=== PATIENT | male | born 1970 | race Two or more races ===

== ENCOUNTER 2017-10-25 17:33 | Emergency (ER) | payer SELFPAY ==
[2017-10-25] MEDS: ONDANSETRON PF 4 MG/2 ML VIAL. IV (18:40)
[2017-10-25] MEDS: IV NORMAL SALINE 500ML BAG 500 ML IV (18:40)
[2017-10-25] MEDS: fentaNYL PF VIAL 100 MCG/2 ML VIAL IV (18:41)
[2017-10-25] MEDS: TETANUS AND DIPHTHERIA TOX/PF 0.5 ML DISP.SYRIN. VAX IM (19:30)
== END 2017-10-25 19:58 | disposition home or self-care (01) ==
LOC: ER 17:33
DX: S51.832A Puncture wound without foreign body of left forearm, initial encounter (principal); E78.00 Pure hypercholesterolemia, unspecified; I10 Essential (primary) hypertension; W29.4XXA Contact with nail gun, initial encounter; Y93.89 Activity, other specified; Y92.89 Other specified places as the place of occurrence of the external cause; Y99.8 Other external cause status
CPT/HCPCS: 73090; 96365; 96375; 99284; J0690; J2405; J3010; J7040

== ENCOUNTER 2021-02-10 22:05 | Emergency (ER) | payer SELFPAY ==
[~2021-02-10] VITALS: Ht 167.6 cm; Wt 84.0 kg
[~2021-02-10 22:05] MED LIST: Aspirin PO; CEPH500C PO; FENO134C10 PO; Guaifenesin/Dextromethorphan PO; HYDR-3164 PO; OMEG1CAP6 PO
[2021-02-10 22:22] LABS: BASO % 0 % (0-3); EOS # 0.2 x10^3/uL (0.0-0.7); EOS % 2 % (0-3); HEMOGLOBIN 15.8 g/dL (13.0-17.5); LYMPH # 4.7 x10^3/uL (1.0-4.8); LYMPH % 44 % (24-48); MEAN CORPUSCULAR HEMOGLOBIN 30 pg (25-35); MEAN CORPUSCULAR HGB CONC 34 g/dL (31-37); MEAN CORPUSCULAR VOLUME 88 fL (79-100); MONO # 0.5 x10^3/uL (0.0-1.1); MONO % 5 % (0-9); NEUT # 5.2 x10^3/uL (1.8-7.7); NEUT % 49 % (31-73); PLATELET COUNT 266 x10^3/uL (140-400); RED BLOOD COUNT 5.21 x10^6/uL (4.30-5.70); RED CELL DISTRIBUTION WIDTH 14.1 % (11.5-14.5); WHITE BLOOD COUNT 10.7 x10^3/uL (4.0-11.0)
[2021-02-10 22:38] LABS: CALCIUM 7.8 mg/dL (8.5-10.1); CREATININE 1.1 mg/dL (0.7-1.3); GFR 70.9; POTASSIUM 3.7 mmol/L (3.5-5.1)
[2021-02-10 22:46] LABS: ALBUMIN 3.7 g/dL (3.4-5.0); ALBUMIN/GLOBULIN RATIO 1.2 (1.0-1.7); TOTAL BILIRUBIN 0.3 mg/dL (0.2-1.0); TOTAL PROTEIN 6.9 g/dL (6.4-8.2)
--- NOTE | 2021-02-10 22:50 | RAD ---
Exam: CT head and cervical spine without contrast INDICATION: Fall, neck and back pain TECHNIQUE: Sequential axial images through the head and cervical spine were obtained without the admi nistration of IV contrast. Exposure: One or more of the following in the visualized dose reduction techniques were utilized for this examination: 1. Automated exposure control 2. Adjustment of the MA and/or KV according to patient size 3. Use of iterative of reconstructive technique Comparisons: None FINDINGS: Head: No focal parenchymal lesion or hemorrhage is identified. There is no midline shift or sulcal effaceme nt. No acute vascular territory infarction is identified. Haddad-white distinction is preserved. The ventricular system is within normal limits without compression hydrocephalus. The basal cisterns are well maintained. The visualized portions of the paranasal sinuses and mastoid air cells are well-pneumatized. No acute fractures. Cervical spine: Straightening of cervical spine which may positional. Vertebral body heights are well-maintained. Fracture to the cervical spine is not identified. Mild spondylotic change in cervical spine with degenerative disease greatest at C4-C5 and C5-C6. Visualized paraspinal soft tissues are unremarkable. IMPRESSION: 1. No acute intracranial abnormality. 2. Negative CT C-spine for acute traumatic injury. Electronically signed by: Caleb Petersen MD (02/10/2021 10:47 PM) [facility]
--- NOTE | 2021-02-10 22:56 | RAD ---
Exam: CT of chest without contrast. CT thoracic spine INDICATION: Fall, neck and back pain TECHNIQUE: Sequential axial images through the chest obtained without IV contrast. Sagittal and coron al reformatted images were reconstructed from the axial data and reviewed. Cone-down reconstructed im ages of the thoracic spine were also reviewed Exposure: One or more of the following in the visualized dose reduction techniques were utilized for this examination: 1. Automated exposure control 2. Adjustment of the MA and/or KV according to patient size 3. Use of iterative of reconstructive technique Comparisons: None FINDINGS: Visualized portions of the thyroid are unremarkable. No enlarged mediastinal lymph nodes are identifi ed. Heart size is normal. No pericardial effusion. Thoracic aorta has a normal course and caliber. Pulmon finesse artery is not enlarged. Airways are patent. Mild bronchial wall thickening is noted. No consolidation or pneumothorax. No pleural effusion or thickening. Visualized upper abdomen is unremarkable. No suspicious osseous lesions or acute fractures. Thoracic spine: Vertebral body heights and alignment are well-maintained. Fracture to the thoracic spine is is not identified. Minimal degenerative disc changes in the mid and lower thoracic spine without significant neural fora abhijeet or spinal canal stenosis. IMPRESSION: 1. No acute traumatic injury identified at the chest. 2. Negative CT thoracic spine for acute traumatic injury. Electronically signed by: Caleb Petersen MD (02/10/2021 10:53 PM) [facility]
--- NOTE | 2021-02-10 23:07 | PHYS DOC ---
Past Medical History Past Medical History: No Pertinent History, High Cholesterol, Hypertension Past Surgical History: Appendectomy, Other Additional Past Surgical Histo: BACK, SHOULDER, AND COLON SX. Smoking Status: Current Every Day Smoker Alcohol Use: Heavy Drug Use: None General Adult EDM: Chief Complaint: MECHANICAL FALL HPI: HPI: Patient is a 50 year old male with past medical history hypertension hyperlipidemia and daily drinker presents for evaluation after a fall. Family found patient unconscious next to a tractor. Family states patient appears to have fallen from the tractor into a hole that he was digging. It is estimated that the patient may have fallen 5 to 6 feet. Family found patient on the ground. Patient was aroused and then brought to the emergency department by private vehicle. On exam patient is alert complaining of right-sided neck disc omfort. Patient appears to be intoxicated. He is moving all of his extremities. I see no open wounds or skin ecchymosis. Patient's C-spine T- spine no midline step-off or deformities. Review of Systems: Review of Systems: Review of systems: Constitutional symptoms- No fever, no chills. Eyes- No Discharge, No Visual Loss Respiratory symptoms- No shortness of breath, No wheezing, No Dyspnea on Exertion Cardiovascular Systems; No chest pain, No Palpitations, No syncope Gastrointestinal symptoms: NO abdominal pain, no nausea, no vomiting or diarrhea. Genitourinary symptoms: No dysuria. Musculoskeletal symptoms: Positive back pain No extremity pain. Positive neck pain NEUROLOGICAL Symptoms: Positive headache, no generalized weakness; No focal Weakness Skin: No rash. Heart Score: C/O Chest Pain: N/A Risk Factors: Risk Factors: DM, Current or recent (<one month) smoker, HTN, HLP, family hi story of CAD, obesity. Risk Scores: Score 0 - 3: 2.5% MACE over next 6 weeks - Discharge Home Score 4 - 6: 20.3% MACE over next 6 weeks - Admit for Clinical Observation Score 7 - 10: 72.7% MACE over next 6 weeks - Early Invasive Strategies Allergies: Allergies: Allergies Coded Allergies Type Severity Reaction Last Updated Verified No Known Drug Allergies 10/13/14 No Physical Exam: PE: General: alert, no acute distress. Skin: warm, dry and intact, no erythema, no rash. HENT: bilateral external ears normal, oropharynx moist, nose normal. Head:: Normocephalic, atraumatic. Neck: Trachea midline. Tenderness to palpation paraspinal cervical C4-C5 on the right no C-spine midline step-off or deformity Eyes: EOMI, Normal conjunctiva, No drainage CARDIOVASCULAR: Regular rate and rhythm RESPIRATORY: No respiratory distress Back: Full range of motion. MUSCULOSKELETAL: Full range of motion of bilateral upper and lower extremities. GASTROINTESTINAL: Abdomen soft without rebound or guarding. NEUROLOGICAL: Alert and noted to person, place and time. No neurological deficits observed Psychiatric: Cooperative. Normal judgment Current Patient Data: Labs: Laboratory Tests Test 02/10/21 22:10 White Blood Count 10.7 x10^3/uL (4.0-11.0) Red Blood Count 5.21 x10^6/uL (4.30-5.70) Hemoglobin 15.8 g/dL (13.0-17.5) Hematocrit 46.0 % (39.0-53.0) Mean Corpuscular Volume 88 fL (79-100) Mean Corpuscular Hemoglobin 30 pg (25-35) Mean Corpuscular Hemoglobin Concent 34 g/dL (31-37) Red Cell Distribution Width 14.1 % (11.5-14.5) Platelet Count 266 x10^3/uL (140-400) Neutrophils (%) (Auto) 49 % (31-73) Lymphocytes (%) (Auto) 44 % (24-48) Monocytes (%) (Auto) 5 % (0-9) Eosinophils (%) (Auto) 2 % (0-3) Basophils (%) (Auto) 0 % (0-3) Neutrophils # (Auto) 5.2 x10^3/uL (1.8-7.7) Lymphocytes # (Auto) 4.7 x10^3/uL (1.0-4.8) Monocytes # (Auto) 0.5 x10^3/uL (0.0-1.1) Eosinophils # (Auto) 0.2 x10^3/uL (0.0-0.7) Basophils # (Auto) 0.0 x10^3/uL (0.0-0.2) Sodium Level 142 mmol/L (136-145) Potassium Level 3.7 mmol/L (3.5-5.1) Chloride Level 106 mmol/L (98-107) Carbon Dioxide Level 26 mmol/L (21-32) Anion Gap 10 (6-14) Blood Urea Nitrogen 9 mg/dL (8-26) Creatinine 1.1 mg/dL (0.7-1.3) Estimated GFR (Cockcroft-Gault) 70.9 BUN/Creatinine Ratio 8 (6-20) Glucose Level 88 mg/dL (70-99) Calcium Level 7.8 mg/dL (8.5-10.1) L Total Bilirubin 0.3 mg/dL (0.2-1.0) Aspartate Amino Transferase (AST) 22 U/L (15-37) Alanine Aminotransferase (ALT) 40 U/L (16-63) Alkaline Phosphatase 95 U/L (46-116) Total Protein 6.9 g/dL (6.4-8.2) Albumin 3.7 g/dL (3.4-5.0) Albumin/Globulin Ratio 1.2 (1.0-1.7) Ethyl Alcohol Level 124 mg/dL (0-10) H Laboratory Tests 02/10/21 22:10 Laboratory Tests 02/10/21 22:10 Vital Signs: Vital Signs Date Time Temp Pulse Resp B/P (MAP) Pulse Ox O2 Delivery O2 Flow Rate FiO2 02/10/21 22:05 97.8 80 18 153/79 (103) 97 Room Air 97.8 EKG: EKG: [] Radiology/Procedures: Radiology/Procedures: [] Impression: Head: No focal parenchymal lesion or hemorrhage is identified. There is no midline shift or sulcal effacement. No acute vascular territory infarction is identified. Haddad-white distinction is preserved. The ventricular system is within normal limits without compression hydrocephalus. The basal cisterns are well maintained. The visualized portions of the paranasal sinuses and mastoid air cells are well- pneumatized. No acute fractures. Cervical spine: Straightening of cervical spine which may positional. Vertebral body heights are well-maintained. Fracture to the cervical spine is not identified. Mild spondylotic change in cervical spine with degenerative disease greatest at C4-C5 and C5-C6. Visualized paraspinal soft tissues are unremarkable. IMPRESSION: 1. No acute intracranial abnormality. 2. Negative CT C-spine for acute traumatic injury. Comparisons: None FINDINGS: Visualized portions of the thyroid are unremarkable. No enlarged mediastinal lymph nodes are identified. Heart size is normal. No pericardial effusion. Thoracic aorta has a normal course and caliber. Pulmonary artery is not enlarged. Airways are patent. Mild bronchial wall thickening is noted. No consolidation or pneumothorax. No pleural effusion or thickening. Visualized upper abdomen is unremarkable. No suspicious osseous lesions or acute fractures. Thoracic spine: Vertebral body heights and alignment are well-maintained. Fracture to the thoracic spine is is not identified. Minimal degenerative disc changes in the mid and lower thoracic spine without significant neural foraminal or spinal canal stenosis. IMPRESSION: 1. No acute traumatic injury identified at the chest. 2. Negative CT thoracic spine for acute traumatic injury. Course & Med Decision Making: Course & Med Decision Making Pertinent Labs and Imaging studies reviewed. (See chart for details) [] CT imaging without acute traumatic injury. Patient moves all extremities passively and actively. Patient without any neurological deficits. Patient discharged home advised to take Tylenol ibuprofen as needed for pain. Patient prescribed cyclobenzaprine. Lauraon Disclaimer: Noemi Disclaimer: This electronic medical record was generated, in whole or in part, using a voice recognition dictation system. Departure Departure Impression: Primary Impression: Fall Additional Impressions: Neck pain Head injury Intoxication Disposition: 01 HOME / SELF CARE / HOMELESS Condition: STABLE Referrals: NO PCP (PCP) Patient Instructions: Cervical Strain and Sprain with [facility], Fall Prevention and Home Safety, Head Injury, Adult Scripts Cyclobenzaprine Hcl (CYCLOBENZAPRINE HCL) 10 Mg Tablet 1 TAB PO QHS, #20 TAB Prov: SASKIA DRISCOLL DO 02/11/21 SASKIA DRISCOLL DO Feb 10, 2021 23:07
[2021-02-11] MEDS ORDERED: CYCL10TA2 PO (00:16)
[2021-02-11 00:20] VITALS: BP 111/67
[2021-02-11] MEDS ORDERED: IV NORMAL SALINE 1000ML BAG 1,000 ML IV ONE (00:30)
== END 2021-02-11 00:25 | disposition home or self-care (01) ==
LOC: ER 22:05
DX: S09.90XA Unspecified injury of head, initial encounter (principal); M54.2 Cervicalgia; R51.9 Headache, unspecified; F10.229 Alcohol dependence with intoxication, unspecified; Y90.1 Blood alcohol level of 20-39 mg/100 ml; I10 Essential (primary) hypertension; E78.00 Pure hypercholesterolemia, unspecified; F17.200 Nicotine dependence, unspecified, uncomplicated; W18.39XA Other fall on same level, initial encounter; Y93.89 Activity, other specified; Y92.89 Other specified places as the place of occurrence of the external cause; Y99.8 Other external cause status
CPT/HCPCS: 36415; 70450; 71250; 72125; 80053; 85025; 99285; G0480; J7030

== ENCOUNTER 2021-09-17 01:03 | Observation (INO) | payer SELFPAY ==
[~2021-09-17] VITALS: Ht 167.6 cm; Wt 77.7 kg
[~2021-09-17 01:03] MED LIST changes: +CYCL10TA19 PO
[2021-09-17] MEDS ORDERED: IV NORMAL SALINE 1000ML BAG 1,000 ML IV ONE (01:15)
--- NOTE | 2021-09-17 01:27 | PHYS DOC ---
Past Medical History Past Medical History: No Pertinent History, High Cholesterol, Hypertension Past Surgical History: Appendectomy, Other Additional Past Surgical Histo: BACK, SHOULDER, AND COLON SX. Smoking Status: Current Every Day Smoker Alcohol Use: Heavy Drug Use: None General Adult EDM: Chief Complaint: chest pain HPI: HPI: Patient is a 50 year old male who was brought here by EMS from home due to chest pain. Family said they went out to a bar, had a republican today, patient drank heavy amount of alcohol. On the way home patient started having chest pain, when they pulled into the his driveway patient passed out for a few minutes. Patient was acting confused. EMS were called, they gave him 1 dose of Narcan but did not produce any effect. His family stated that patient is a heavy smoker, heavy drinker, denies any history of diabetic. He has no history of high blood pressure but he does have a history of high cholesterol. Patient is not on any medication. Patient denies any history of coronary artery disease. No cough or fever, no abdominal pain. Through his daughter, patient said he is having left side chest pain that radiating to left shoulder and arm. Review of Systems: Review of Systems: Constitutional: Denies fever or chills. [] Eyes: Denies change in visual acuity. [] HENT: Denies nasal congestion or sore throat. [] Respiratory: Denies cough or shortness of breath. [] Cardiovascular: Positive for chest pain, no edema GI: Denies abdominal pain, nausea, vomiting, bloody stools or diarrhea. [] : Denies dysuria. [] Musculoskeletal: Denies back pain or joint pain. [] Integument: Denies rash. [] Neurologic: Denies headache, focal weakness or sensory changes. [] Endocrine: Denies polyuria or polydipsia. [] Lymphatic: Denies swollen glands. [] Psychiatric: Denies depression or anxiety. [] Heart Score: C/O Chest Pain: Yes HEART Score for Chest Pain: HEART Score for Chest Pain Response (Comments) Value History Moderately Suspicious 1 ECG Nonspecific Repolarizatio 1 Age >45 - < 65 1 Risk Factors 1 or 2 Risk Factors 1 Troponin < Normal Limit 0 Total 4 Risk Factors: Risk Factors: DM, Current or recent (<one month) smoker, HTN, HLP, family history of CAD, obesity. Risk Scores: Score 0 - 3: 2.5% MACE over next 6 weeks - Discharge Home Score 4 - 6: 20.3% MACE over next 6 weeks - Admit for Clinical Observation Score 7 - 10: 72.7% MACE over next 6 weeks - Early Invasive Strategies Current Medications: Current Medications Medications (Trade) Dose Ordered Sig/Kareem Start Time Stop Time Status Last Admin Dose Admin Sodium Chloride 1,000 ml @ 1,000 mls/hr 1X ONCE 09/17/21 01:15 09/17/21 02:14 Allergies: Allergies: Allergies Coded Allergies Type Severity Reaction Last Updated Verified No Known Drug Allergies 10/13/14 No Physical Exam: PE: Constitutional: Well developed, well nourished, no acute distress, non-toxic appearance. [] HENT: Normocephalic, atraumatic, bilateral external ears normal, oropharynx moist, no oral exudates, nose normal. [] Eyes: PERRLA, EOMI, conjunctiva normal, no discharge. [] Neck: Normal range of motion, no tenderness, supple, no stridor. [] Cardiovascular:Heart rate regular rhythm, no murmur [] Lungs & Thorax: Bilateral breath sounds clear to auscultation [] Abdomen: Bowel sounds normal, soft, no tenderness, no masses, no pulsatile masses. [] Skin: Warm, dry, no erythema, no rash. [] Back: No tenderness, no CVA tenderness. [] Extremities: No tenderness, no cyanosis, no clubbing, ROM intact, no edema. [] Neurologic: Alert and oriented X 3, normal motor function, normal sensory function, no focal deficits noted. [] Psychologic: Affect normal, judgement normal, mood normal. [] Current Patient Data: Labs: Laboratory Tests Test 09/17/21 01:20 09/17/21 01:53 White Blood Count 17.9 x10^3/uL Red Blood Count 4.94 x10^6/uL Hemoglobin 14.7 g/dL Hematocrit 43.2 % Mean Corpuscular Volume 87 fL Mean Corpuscular Hemoglobin 30 pg Mean Corpuscular Hemoglobin Concent 34 g/dL Red Cell Distribution Width 13.9 % Platelet Count 241 x10^3/uL Neutrophils (%) (Auto) 71 % Lymphocytes (%) (Auto) 24 % Monocytes (%) (Auto) 5 % Eosinophils (%) (Auto) 1 % Basophils (%) (Auto) 1 % Neutrophils # (Auto) 12.6 x10^3/uL Lymphocytes # (Auto) 4.2 x10^3/uL Monocytes # (Auto) 0.8 x10^3/uL Eosinophils # (Auto) 0.2 x10^3/uL Basophils # (Auto) 0.1 x10^3/uL Sodium Level 140 mmol/L Potassium Level 3.7 mmol/L Chloride Level 103 mmol/L Carbon Dioxide Level 21 mmol/L Anion Gap 16 Blood Urea Nitrogen 20 mg/dL Creatinine 1.3 mg/dL Estimated GFR (Cockcroft-Gault) 58.4 BUN/Creatinine Ratio 15 Glucose Level 113 mg/dL Calcium Level 8.1 mg/dL Magnesium Level 2.3 mg/dL Total Bilirubin 0.2 mg/dL Aspartate Amino Transf (AST/SGOT) 27 U/L Alanine Aminotransferase (ALT/SGPT) 45 U/L Alkaline Phosphatase 92 U/L Troponin I High Sensitivity 6 ng/L [id number] Natriuretic Peptide 10 pg/mL Total Protein 6.9 g/dL Albumin 3.7 g/dL Albumin/Globulin Ratio 1.2 Lipase 68 U/L Ethyl Alcohol Level 222 mg/dL Urine Collection Type Unknown Urine Color (Auto) Colorless Urine Turbidity Clear Urine pH (Auto) 5.5 Urine Specific [place] 1.010 Urine Protein (Auto) Negative mg/dL Urine Glucose (Auto)(UA) Negative mg/dL Urine Ketones (Auto) Negative mg/dL Urine Blood (Auto) Negative Urine Nitrite (Auto) Negative Urine Bilirubin (Auto) Negative Urine Urobilinogen (Auto) Normal mg/dL Urine Leukocyte Esterase (Auto) Negative Urine RBC 0 /HPF Urine WBC Occ /HPF Urine Squamous Epithelial Cells Occ /LPF Urine Bacteria 0 /HPF Urine Opiates Screen Neg Urine Methadone Screen Neg Urine Barbiturates Neg Urine Phencyclidine Screen Neg Urine Amphetamine/Methamphetamine Neg Urine Benzodiazepines Screen Neg Urine Cocaine Screen Neg Urine Cannabinoids Screen Neg Urine Ethyl Alcohol Pos Current Medications Medications (Trade) Dose Ordered Sig/Kareem Route PRN Reason Start Time Stop Time Status Last Admin Dose Admin Sodium Chloride 1,000 ml @ 1,000 mls/hr 1X ONCE IV 09/17/21 01:15 09/17/21 02:14 DC 09/17/21 01:31 Iohexol (Omnipaque 350 Mg/ml) 80 ml 1X ONCE IV 09/17/21 03:00 09/17/21 03:01 DC Info (CONTRAST GIVEN -- Rx MONITORING) 1 each PRN DAILY PRN MC SEE COMMENTS 09/17/21 03:00 09/19/21 02:59 EKG: EKG: EKG was done at 202, heart rate of 77 bpm, sinus rhythm, no ST segment elevation. Radiology/Procedures: Radiology/Procedures: [][facility] [address] [place] [address] IMAGING REPORT Signed PATIENT: MELONIE MARRERO ACCOUNT: [id number] : 1970 LOCATION: ER AGE: 50 SEX: M EXAM STATUS: REG ER ORD. PHYSICIAN: AV FARIAS DO REASON: chest pain, passing out, soa;OMNI 350,80ML PROCEDURE: CT ANGIO CHEST ABD PELVIS INDICATION: Reason: chest pain, passing out, soa;OMNI 350,80ML / Spl. Instructions: / History: COMPARISON: CT chest from February 10, 2021. TECHNIQUE: Axial CT images were obtained through the chest abdomen and pelvis with intravenous contrast. Three-dimensional images processed per angiogram protocol One or more of the following individualized dose reduction techniques were u tilized for this examination: 1. Automated exposure control; 2. Adjustment of the mA and/or kV according to patient size; 3. Use of iterative reconstruction technique. FINDINGS: Dependent airspace opacities bilaterally. There is an additional subtle groundglass opacities bilaterally. No evidence of pneumothorax. Enlarged lymph nodes within the mediastinum and hilum. For example right hilar lymph node measuring up to 21 mm short axis. The pulmonary arteries are not evaluated secondary to minimal contrast within. The ascending thoracic aorta is partially obscured by motion. No aneurysm or dissection flap in the visualized portion of thoracic aorta. Vascular: No abdominal aortic aneurysm. Hepatobiliary: Liver is low density. Nonspecific but can be seen with fatty infiltration. Pancreas: No peripancreatic edema. Spleen: Heterogenous enhancement limits evaluation. Renal/Bladder: Low-density lesion in the right kidney measuring up to about 16 mm. Incompletely evaluated but most commonly from renal cyst. Urinary bladder is well-distended. Gastrointestinal: No dilated loops of bowel to suggest obstruction. Degenerative changes throughout the spine with disc protrusions and osteophyte formation as well as facet hypertrophy. IMPRESSION: * No aortic aneurysm or dissection is seen. * Mild groundglass opacities in the lungs. Could be from hypoventilatory changes or small airway inflammation from pneumonitis. * Lymphadenopathy within the mediastinum and hilum which could be reactive or neoplastic and follow-up could be obtained in a few months to ensure no growth. * Distended urinary bladder. Electronically signed by: Britany Guerrero MD (09/17/2021 4:41 AM) [id number] DICTATED and SIGNED BY: BRITANY GUERRERO MD DATE: 09/17/21 [id number] [facility] [address] [place] [address] IMAGING REPORT Signed PATIENT: MELONIE MARRERO ACCOUNT: [id number] : 1970 LOCATION: ER AGE: 50 SEX: M EXAM STATUS: REG ER ORD. PHYSICIAN: AV FARIAS DO REASON: syncope PROCEDURE: CT HEAD WO CONTRAST INDICATION: Reason: syncope / Spl. Instructions: / History: COMPARISON: February 10, 2021 TECHNIQUE: Axial CT images obtained through the head without intravenous contrast. One or more of the following individualized dose reduction techniques were utilized for this examination: 1. Automated exposure control; 2. Adjustment of the mA and/or kV according to patient size; 3. Use of iterative reconstruction technique. FINDINGS: No intracranial hemorrhage. No significant midline shift. Ventricles and sulci are globally prominent. Scattered foci of low attenuation within the white matter. Prominence of cisterna magna. Calcification left cerebral hemisphere again seen. IMPRESSION: * No acute intracranial hemorrhage. * Scattered regions of low attenuation within the white matter. Non-specific in nature but a common finding and frequently secondary to small vessel ischemic disease. Electronically signed by: Britany Guerrero MD (09/17/2021 4:05 AM) [id number] DICTATED and SIGNED BY: BRITANY GUERRERO MD DATE: 09/17/21 0406 Course & Med Decision Making: Course & Med Decision Making Pertinent Labs and Imaging studies reviewed. (See chart for details) Patient is a 50-year-old male who was brought here by EMS from home due to chest pain and syncopal episode. Patient had an episode where he passed out, acting like he was having an absence seizure, then did not remember. Patient complained of substernal chest pain that radiated to left shoulder and arm. Cardiac enzyme and EKG did not show any acute problem. Patient will be i ntoxicated. CT scan of the head, chest abdomen pelvis did not show any dissection or PE. Patient will be admitted for observation Dragon Disclaimer: Dragon Disclaimer: This electronic medical record was generated, in whole or in part, using a voice recognition dictation system. Departure Departure Impression: Primary Impression: Chest pain Additional Impressions: Syncope Alcohol intoxication Disposition: ADMITTED INPATIENT Admitting Physician: TALYA (Dr. Fraser) Condition: STABLE Referrals: NO PCP (PCP) AV FARIAS DO September 17, 2021 01:27
[2021-09-17 01:30] LABS: BASO # 0.1 x10^3/uL (0.0-0.2); BASO % 1 % (0-3); EOS # 0.2 x10^3/uL (0.0-0.7); EOS % 1 % (0-3); HEMATOCRIT 43.2 % (39.0-53.0); HEMOGLOBIN 14.7 g/dL (13.0-17.5); LYMPH # 4.2 x10^3/uL (1.0-4.8); LYMPH % 24 % (24-48); MEAN CORPUSCULAR HEMOGLOBIN 30 pg (25-35); MEAN CORPUSCULAR HGB CONC 34 g/dL (31-37); MEAN CORPUSCULAR VOLUME 87 fL (79-100); MONO # 0.8 x10^3/uL (0.0-1.1); MONO % 5 % (0-9); NEUT # 12.6 x10^3/uL (1.8-7.7); NEUT % 71 % (31-73); PLATELET COUNT 241 x10^3/uL (140-400); RED BLOOD COUNT 4.94 x10^6/uL (4.30-5.70); RED CELL DISTRIBUTION WIDTH 13.9 % (11.5-14.5); WHITE BLOOD COUNT 17.9 x10^3/uL (4.0-11.0)
[2021-09-17 02:00] LABS: CALCIUM 8.1 mg/dL (8.5-10.1); CREATININE 1.3 mg/dL (0.7-1.3); GFR 58.4; POTASSIUM 3.7 mmol/L (3.5-5.1)
[2021-09-17 02:08] LABS: BARBITURATES NEG (NEG); BENZODIAZEPINES NEG (NEG); CANNABINOIDS NEG (NEG); COCAINE NEG (NEG); METHADONE NEG (NEG); OPIATES NEG (NEG); PHENCYCLIDINE NEG (NEG)
[2021-09-17 02:09] LABS: ALBUMIN 3.7 g/dL (3.4-5.0); ALBUMIN/GLOBULIN RATIO 1.2 (1.0-1.7); MAGNESIUM 2.3 mg/dL (1.8-2.4); TOTAL BILIRUBIN 0.2 mg/dL (0.2-1.0); TOTAL PROTEIN 6.9 g/dL (6.4-8.2)
[2021-09-17 02:11] LABS: AMPHETAMINE/METHAMPHETAMINE NEG (NEG)
[2021-09-17 02:15] LABS: BACTERIA,URINE 0 /HPF (0-FEW); RBC,URINE 0 /HPF (0-2); WBC,URINE OCC /HPF (0-4)
[2021-09-17] MEDS ORDERED: CONTRAST GIVEN. MC PRN (03:00)
[2021-09-17] MEDS ORDERED: IOHEXOL 350 MG/ML 100 ML VIAL. IV ONE (03:00)
--- NOTE | 2021-09-17 04:07 | RAD ---
INDICATION: Reason: syncope / Spl. Instructions: / History: COMPARISON: February 10, 2021 TECHNIQUE: Axial CT images obtained through the head without intravenous contrast. One or more of the following individualized dose reduction techniques were utilized for this examinat ion: 1. Automated exposure control; 2. Adjustment of the mA and/or kV according to patient size; 3 . Use of iterative reconstruction technique. FINDINGS: No intracranial hemorrhage. No significant midline shift. Ventricles and sulci are globally prominent. Scattered foci of low attenuation within the white matter. Prominence of cisterna magna. Calcification left cerebral hemisphere again seen. IMPRESSION: * No acute intracranial hemorrhage. * Scattered regions of low attenuation within the white matter. Non-specific in nature but a common finding and frequently secondary to small vessel ischemic disease. Electronically signed by: Gera Marie MD (09/17/2021 4:05 AM) [id number]
--- NOTE | 2021-09-17 04:43 | RAD ---
INDICATION: Reason: chest pain, passing out, soa;OMNI 350,80ML / Spl. Instructions: / History: COMPARISON: CT chest from February 10, 2021. TECHNIQUE: Axial CT images were obtained through the chest abdomen and pelvis with intravenous contrast. Three-d imensional images processed per angiogram protocol One or more of the following individualized dose reduction techniques were utilized for this examinat ion: 1. Automated exposure control; 2. Adjustment of the mA and/or kV according to patient size; 3 . Use of iterative reconstruction technique. FINDINGS: Dependent airspace opacities bilaterally. There is an additional subtle groundglass opacities bilaterally. No evidence of pneumothorax. Enlarged lymph nodes within the mediastinum and hilum. For example right hilar lymph node measuring u p to 21 mm short axis. The pulmonary arteries are not evaluated secondary to minimal contrast within. The ascending thoracic aorta is partially obscured by motion. No aneurysm or dissection flap in the v isualized portion of thoracic aorta. Vascular: No abdominal aortic aneurysm. Hepatobiliary: Liver is low density. Nonspecific but can be seen with fatty infiltration. Pancreas: No peripancreatic edema. Spleen: Heterogenous enhancement limits evaluation. Renal/Bladder: Low-density lesion in the right kidney measuring up to about 16 mm. Incompletely evalu ated but most commonly from renal cyst. Urinary bladder is well-distended. Gastrointestinal: No dilated loops of bowel to suggest obstruction. Degenerative changes throughout the spine with disc protrusions and osteophyte formation as well as f acet hypertrophy. IMPRESSION: * No aortic aneurysm or dissection is seen. * Mild groundglass opacities in the lungs. Could be from hypoventilatory changes or small airway inf lammation from pneumonitis. * Lymphadenopathy within the mediastinum and hilum which could be reactive or neoplastic and follow- up could be obtained in a few months to ensure no growth. * Distended urinary bladder. Electronically signed by: Gera Marie MD (09/17/2021 4:41 AM) [id number]
[2021-09-17] MEDS ORDERED: ONDANSETRON PF 4 MG/2 ML VIAL. IVP PRN (05:30)
[2021-09-17] MEDS: IV NORMAL SALINE 1000ML BAG 1,000 ML IV SCH ×2 (05:39→05:41)
--- NOTE | 2021-09-17 06:03 | RAD ---
INDICATION: Reason: chest pain / Spl. Instructions: / History: COMPARISON: April 12, 2021 FINDINGS: Frontal view of chest obtained. Mild groundglass opacities bilaterally. Hypoexpanded exam. Cardiac silhouette unremarkable IMPRESSION: * Mild groundglass opacities within the lungs. Could be from hypoventilatory changes or small airway inflammation. Electronically signed by: Gera Marie MD (09/17/2021 6:01 AM) [id number]
[2021-09-17 06:15] VITALS: BP 125/66
[2021-09-17 07:00] VITALS: BP 109/64
--- NOTE | 2021-09-17 08:08 | PDOC1 ---
History and Physical Date of Admission Date of Admission DATE: 09/17/21 TIME: 08:07 Identification/Chief Complaint Chief Complaint Syncope Source Source: Caregiver, Chart review, Patient History of Present Illness History of Present Illness Mr Marrero is a 50 year old luxem[place]ish speaking only male who was brought here by EMS from home due to chest pain. Family said they went out to a bar, had a republican today, patient drank heavy amount of alcohol. On the way home patient started having chest pain, when they pulled into the his driveway patient passed out for a few minutes. Patient was acting confused. EMS were called, they gave him 1 dose of Narcan but did not produce any effect. His family stated that patient is a heavy smoker, heavy drinker, denies any history of diabetic. He has no history of high blood pressure but he does have a history of high cholesterol. Patient is not on any medication. Patient denies any history of coronary artery disease. No cough or fever, no abdominal pain. Through his daughter, patient said he is having left side chest pain that radiating to left shoulder and arm. Labs with WBC 17.9, Hb 14.7, platelets 241, NA 140, K3.7, BUN 20, CR 1.3, glucose 113, calcium 8.1, magnesium 2.3 bilirubin 0.2, AST 27, ALT 45, alkaline phosphatase 92, albumin 3.7, lipase 68, NT proBNP 10, high-sensitivity troponin 6 repeat is 4, urine drug screen positive for ethanol and ethanol level at 0120 on 09/17/21 was 222 mg/dL, urinalysis bland CT chest abdomen pelvis with large glass opacities liver abnormalities no pulmonary infarcts distended bladder. EKG was done at 202, heart rate of 77 bpm, sinus rhythm, no ST segment elevation. Past Medical History Cardiovascular: HTN, Hyperlipidemia Pulmonary: No pertinent hx CENTRAL NERVOUS SYSTEM: Other GI: No pertinent hx Heme/Onc: No pertinent hx Hepatobiliary: No pertinent hx Psych: Depression Musculoskeletal: Osteoarthritis Rheumatologic: No pertinent hx Infectious disease: No pertinent hx Renal/: No pertinent hx Endocrine: No pertinent hx Past Surgical History Past Surgical History: Appendectomy, Other Family History Family History: Coronary Artery Disease Social History Smoke: 1 pack per day ALCOHOL: occassional Drugs: None Current Problem List Problem List Problems Medical Problems: (1) Chest pain Status: Acute Current Medications Current Medications Current Medications Sodium Chloride 1,000 ml @ 1,000 mls/hr 1X ONCE IV Last administered on 09/17/21at 01:31; Start 09/17/21 at 01:15; Stop 09/17/21 at 02:14; Status DC Iohexol (Omnipaque 350 Mg/ml) 80 ml 1X ONCE IV ; Start 09/17/21 at 03:00; Stop 09/17/21 at 03:01; Status DC Info (CONTRAST GIVEN -- Rx MONITORING) 1 each PRN DAILY PRN MC SEE COMMENTS; Start 09/17/21 at 03:00; Stop 09/19/21 at 02:59 Ondansetron HCl (Zofran) 4 mg PRN Q8HRS PRN IVP NAUSEA/VOMITING; Start 09/17/21 at 05:30; Stop 09/18/21 at 05:29 Sodium Chloride 1,000 ml @ 100 mls/hr Q10H IV Last administered on 09/17/21at 05:41; Start 09/17/21 at 05:30; Stop 09/18/21 at 05:29 Active Scripts Active Cyclobenzaprine Hcl 10 Mg Tablet 1 Tab PO QHS [place] 5-325 Tablet (Acetaminophen/Hydrocodone Bitart) 1 Each Tablet 1 Tab PO PRN Q6HRS PRN Keflex (Cephalexin) 500 Mg Capsule 1 Cap PO TID Fish Oil 1,000 Mg Capsule ([place]-3 Fatty Acids/Fish Oil) 1,000 Mg Capsule 2,000 Mg PO BID [Guaifenesin/Dextromethorphan] 10 ML Syrup 10 Ml PO PRN Q6HRS PRN Lofibra (Fenofibrate,Micronized) 134 Mg Capsule 134 Mg PO DAILY [Aspirin] 81 MG Tablet.dr 81 Mg PO DAILYWBKFT Allergies Allergies: Coded Allergies: No Known Drug Allergies (Unverified , 10/13/14) ROS General: YES: Fatigue, Malaise; No: Chills, Night Sweats, Appetite, Other PSYCHOLOGICAL ROS: YES: Anxiety; No: Behavioral Disorder, Concentration difficultie, Decreased libido, Depression, Disorientation, Hallucinations, Hostility, Irritablity, Memory diffi culties, Mood Swings, Obsessive thoughts, Physical abuse, Sexual abuse, Sleep disturbances, Suicidal ideation, Other Eyes: No Blurry vision, No Decreased vision, No Double vision, No Dry eyes, No Excessive tearing, No Eye Pain, No Itchy Eyes, No Loss of vision, No Photophobia, No Scotomata, No Uses contacts, No Uses glasses, No Other HEENT: YES: Heacaches; No: Visual Changes, Hearing change, Nasal congestion, Nasal discharge, Oral lesions, Sinus pain, Sore Throat, Epistaxis, Sneezing, Snoring, Tinnitus, Vertigo, Vocal changes, Other ALLERGY AND IMMUNOLOGY: No: Hives, Insect Bite Sensitivity, Itchy/Watery Eyes, Nasal Congestion, Post Nasal Drip, Seasonal Allergies, Other Hematological and Lymphatic: No: Bleeding Problems, Blood Clots, Blood Transfusions, Brusing, Night Sweats, Pallor, Swollen Lymph Nodes, Other ENDOCRINE: No: Breast Changes, Galactorrhea, Hair Pattern Changes, Hot Flashes, Malaise/lethargy, Mood Swings, Palpitations, Polydipsia/polyuria, Skin Changes, Temperature Intolerance, Unexpected Weight Changes, Other Breast: No New/Changing Breast Lumps, No Nipple changes, No Nipple discharge, No Other Respiratory: No: Cough, Hemoptysis, Orthopnea, Pleuritic Pain, Shortness of breath, SOB with excertion, Sputum Changes, Stridor, Tachypnea, Wheezing, Other Cardiovascular: yes Chest Pain; No Palpitations, No Orthopnea, No Paroxysmal Noc. Dyspnea, No Edema, No Lt Headedness, No Other Gastrointestinal: Yes Nausea; No Vomiting, No Abdominal Pain, No Diarrhea, No Constipation, No Melena, No Hematochezia, No Other Genitourinary: No Dysuria, No Frequency, No Incontinence, No Hematuria, No Retention, No Discharge, No Urgency, No Pain, No Flank Pain, No Other, No , No , No , No , No , No , No Musculoskeletal: No Gait Disturbance, No Joint Pain, No Joint Stiffness, No Joint Swelling, No Muscle Pain, No Muscular Weakness, No Pain In:, No Swelling In:, No Other Neurological: No Behavorial Changes, No Bowel/Bladder ControlChng, No Confusion, No Dizziness, No Gait Disturbance, No Headaches, No Impaired Coord/balance, No Memory Loss, No Numbness/Tingling, No Seizures, No Speech Problems, No Tremors, No Visual Changes, No Weakness, No Other Skin: No Dry Skin, No Eczema, No Hair Changes, No Lumps, No Mole Changes, No Mottling, No Nail Changes, No Pruritus, No Rash, No Skin Lesion Changes, No Other, No Acne Physical Exam General: Alert, Cooperative, No acute distress HEENT: Atraumatic, PERRLA, EOMI, Mucous membr. moist/pink Lungs: Clear to auscultation, Normal air movement Heart: S1S2, RRR, no thrills, no rubs, no gallops, no murmurs Abdomen: Normal bowel sounds, Soft, No tenderness, No hepatosplenomegaly, No masses Rectal Exam: not examined Extremities: No clubbing, No cyanosis, No edema, Normal pulses, No tenderness/swelling Skin: No rashes, No breakdown, No significant lesion Neuro: Normal gait, Normal speech, Strength at 5/5 X4 ext, Normal tone, Sensation intact, Cranial nerves 3-12 NL, Reflexes 2+ Psych/Mental Status: Mental status NL, Mood NL Vitals Vitals Vital Signs Date Time Temp Pulse Resp B/P (MAP) Pulse Ox O2 Delivery O2 Flow Rate FiO2 09/17/21 06:15 98.4 82 20 125/66 (85) 95 Room Air 98.4 Labs Labs Laboratory Tests Test 09/17/21 01:20 09/17/21 01:53 09/17/21 04:50 White Blood Count 17.9 x10^3/uL (4.0-11.0) Red Blood Count 4.94 x10^6/uL (4.30-5.70) Hemoglobin 14.7 g/dL (13.0-17.5) Hematocrit 43.2 % (39.0-53.0) Mean Corpuscular Volume 87 fL (79-100) Mean Corpuscular Hemoglobin 30 pg (25-35) Mean Corpuscular Hemoglobin Concent 34 g/dL (31-37) Red Cell Distribution Width 13.9 % (11.5-14.5) Platelet Count 241 x10^3/uL (140-400) Neutrophils (%) (Auto) 71 % (31-73) Lymphocytes (%) (Auto) 24 % (24-48) Monocytes (%) (Auto) 5 % (0-9) Eosinophils (%) (Auto) 1 % (0-3) Basophils (%) (Auto) 1 % (0-3) Neutrophils # (Auto) 12.6 x10^3/uL (1.8-7.7) Lymphocytes # (Auto) 4.2 x10^3/uL (1.0-4.8) Monocytes # (Auto) 0.8 x10^3/uL (0.0-1.1) Eosinophils # (Auto) 0.2 x10^3/uL (0.0-0.7) Basophils # (Auto) 0.1 x10^3/uL (0.0-0.2) Sodium Level 140 mmol/L (136-145) Potassium Level 3.7 mmol/L (3.5-5.1) Chloride Level 103 mmol/L (98-107) Carbon Dioxide Level 21 mmol/L (21-32) Anion Gap 16 (6-14) Blood Urea Nitrogen 20 mg/dL (8-26) Creatinine 1.3 mg/dL (0.7-1.3) Estimated GFR (Cockcroft-Gault) 58.4 BUN/Creatinine Ratio 15 (6-20) Glucose Level 113 mg/dL (70-99) Calcium Level 8.1 mg/dL (8.5-10.1) Magnesium Level 2.3 mg/dL (1.8-2.4) Total Bilirubin 0.2 mg/dL (0.2-1.0) Aspartate Amino Transf (AST/SGOT) 27 U/L (15-37) Alanine Aminotransferase (ALT/SGPT) 45 U/L (16-63) Alkaline Phosphatase 92 U/L (46-116) Troponin I High Sensitivity 6 ng/L (4-75) 4 ng/L (4-75) WN-Eir-A-Type Natriuretic Peptide 10 pg/mL (0-124) Total Protein 6.9 g/dL (6.4-8.2) Albumin 3.7 g/dL (3.4-5.0) Albumin/Globulin Ratio 1.2 (1.0-1.7) Lipase 68 U/L (73-393) Ethyl Alcohol Level 222 mg/dL (0-10) Urine Collection Type Unknown Urine Color (Auto) Colorless Urine Turbidity Clear Urine pH (Auto) 5.5 (<5.0-8.0) Urine Specific [place] 1.010 (1.000-1.030) Urine Protein (Auto) Negative mg/dL (Negative) Urine Glucose (Auto)(UA) Negative mg/dL (Negative) Urine Ketones (Auto) Negative mg/dL (Negative) Urine Blood (Auto) Negative (Negative) Urine Nitrite (Auto) Negative (Negative) Urine Bilirubin (Auto) Negative (Negative) Urine Urobilinogen (Auto) Normal mg/dL (Normal) Urine Leukocyte Esterase (Auto) Negative (Negative) Urine RBC 0 /HPF (0-2) Urine WBC Occ /HPF (0-4) Urine Squamous Epithelial Cells Occ /LPF Urine Bacteria 0 /HPF (0-FEW) Urine Opiates Screen Neg (NEG) Urine Methadone Screen Neg (NEG) Urine Barbiturates Neg (NEG) Urine Phencyclidine Screen Neg (NEG) Urine Amphetamine/Methamphetamine Neg (NEG) Urine Benzodiazepines Screen Neg (NEG) Urine Cocaine Screen Neg (NEG) Urine Cannabinoids Screen Neg (NEG) Urine Ethyl Alcohol Pos (NEG) Laboratory Tests Test 09/17/21 01:20 09/17/21 01:53 09/17/21 04:50 White Blood Count 17.9 x10^3/uL (4.0-11.0) Red Blood Count 4.94 x10^6/uL (4.30-5.70) Hemoglobin 14.7 g/dL (13.0-17.5) Hematocrit 43.2 % (39.0-53.0) Mean Corpuscular Volume 87 fL (79-100) Mean Corpuscular Hemoglobin 30 pg (25-35) Mean Corpuscular Hemoglobin Concent 34 g/dL (31-37) Red Cell Distribution Width 13.9 % (11.5-14.5) Platelet Count 241 x10^3/uL (140-400) Neutrophils (%) (Auto) 71 % (31-73) Lymphocytes (%) (Auto) 24 % (24-48) Monocytes (%) (Auto) 5 % (0-9) Eosinophils (%) (Auto) 1 % (0-3) Basophils (%) (Auto) 1 % (0-3) Neutrophils # (Auto) 12.6 x10^3/uL (1.8-7.7) Lymphocytes # (Auto) 4.2 x10^3/uL (1.0-4.8) Monocytes # (Auto) 0.8 x10^3/uL (0.0-1.1) Eosinophils # (Auto) 0.2 x10^3/uL (0.0-0.7) Basophils # (Auto) 0.1 x10^3/uL (0.0-0.2) Sodium Level 140 mmol/L (136-145) Potassium Level 3.7 mmol/L (3.5-5.1) Chloride Level 103 mmol/L (98-107) Carbon Dioxide Level 21 mmol/L (21-32) Anion Gap 16 (6-14) Blood Urea Nitrogen 20 mg/dL (8-26) Creatinine 1.3 mg/dL (0.7-1.3) Estimated GFR (Cockcroft-Gault) 58.4 BUN/Creatinine Ratio 15 (6-20) Glucose Level 113 mg/dL (70-99) Calcium Level 8.1 mg/dL (8.5-10.1) Magnesium Level 2.3 mg/dL (1.8-2.4) Total Bilirubin 0.2 mg/dL (0.2-1.0) Aspartate Amino Transf (AST/SGOT) 27 U/L (15-37) Alanine Aminotransferase (ALT/SGPT) 45 U/L (16-63) Alkaline Phosphatase 92 U/L (46-116) Troponin I High Sensitivity 6 ng/L (4-75) 4 ng/L (4-75) YP-Qdo-G-Type Natriuretic Peptide 10 pg/mL (0-124) Total Protein 6.9 g/dL (6.4-8.2) Albumin 3.7 g/dL (3.4-5.0) Albumin/Globulin Ratio 1.2 (1.0-1.7) Lipase 68 U/L (73-393) Ethyl Alcohol Level 222 mg/dL (0-10) Urine Collection Type Unknown Urine Color (Auto) Colorless Urine Turbidity Clear Urine pH (Auto) 5.5 (<5.0-8.0) Urine Specific [place] 1.010 (1.000-1.030) Urine Protein (Auto) Negative mg/dL (Negative) Urine Glucose (Auto)(UA) Negative mg/dL (Negative) Urine Ketones (Auto) Negative mg/dL (Negative) Urine Blood (Auto) Negative (Negative) Urine Nitrite (Auto) Negative (Negative) Urine Bilirubin (Auto) Negative (Negative) Urine Urobilinogen (Auto) Normal mg/dL (Normal) Urine Leukocyte Esterase (Auto) Negative (Negative) Urine RBC 0 /HPF (0-2) Urine WBC Occ /HPF (0-4) Urine Squamous Epithelial Cells Occ /LPF Urine Bacteria 0 /HPF (0-FEW) Urine Opiates Screen Neg (NEG) Urine Methadone Screen Neg (NEG) Urine Barbiturates Neg (NEG) Urine Phencyclidine Screen Neg (NEG) Urine Amphetamine/Methamphetamine Neg (NEG) Urine Benzodiazepines Screen Neg (NEG) Urine Cocaine Screen Neg (NEG) Urine Cannabinoids Screen Neg (NEG) Urine Ethyl Alcohol Pos (NEG) Images Images CT ANGIO CHEST ABD PELVIS Axial CT images were obtained through the chest abdomen and pelvis with intravenous contrast. Three-dimensional images processed per angiogram protocol One or more of the following individualized dose reduction techniques were utilized for this examination: 1. Automated exposure control; 2. Adjustment of the mA and/or kV according to patient size; 3. Use of iterative reconstruction technique. FINDINGS: Dependent airspace opacities bilaterally. There is an additional subtle groundglass opacities bilaterally. No evidence of pneumothorax. Enlarged lymph nodes within the mediastinum and hilum. For example right hilar lymph node measuring up to 21 mm short axis. The pulmonary arteries are not evaluated secondary to minimal contrast within. The ascending thoracic aorta is partially obscured by motion. No aneurysm or dissection flap in the visualized portion of thoracic aorta. Vascular: No abdominal aortic aneurysm. Hepatobiliary: Liver is low density. Nonspecific but can be seen with fatty infiltration. Pancreas: No peripancreatic edema. Spleen: Heterogenous enhancement limits evaluation. Renal/Bladder: Low-density lesion in the right kidney measuring up to about 16 mm. Incompletely evaluated but most commonly from renal cyst. Urinary bladder is well-distended. Gastrointestinal: No dilated loops of bowel to suggest obstruction. Degenerative changes throughout the spine with disc protrusions and osteophyte formation as well as facet hypertrophy. IMPRESSION: * No aortic aneurysm or dissection is seen. * Mild groundglass opacities in the lungs. Could be from hypoventilatory changes or small airway inflammation from pneumonitis. * Lymphadenopathy within the mediastinum and hilum which could be reactive or neoplastic and follow-up could be obtained in a few months to ensure no growth. * Distended urinary bladder. Electronically signed by: Britany Guerrero MD (09/17/2021 4:41 AM) [id number] DICTATED and SIGNED BY: BRITANY GUERRERO MD DATE: 09/17/21 0429 [facility] [address] [place] [address] IMAGING REPORT Signed PATIENT: MELONIE MARRERO ACCOUNT: [id number] : 1970 LOCATION: ER AGE: 50 SEX: M EXAM STATUS: REG ER ORD. PHYSICIAN: AV FARIAS DO REASON: syncope PROCEDURE: CT HEAD WO CONTRAST INDICATION: Reason: syncope / Spl. Instructions: / History: COMPARISON: February 10, 2021 TECHNIQUE: Axial CT images obtained through the head without intravenous contrast. One or more of the following individualized dose reduction techniques were utilized for this examination: 1. Automated exposure control; 2. Adjustment of the mA and/or kV according to patient size; 3. Use of iterative reconstruction technique. FINDINGS: No intracranial hemorrhage. No significant midline shift. Ventricles and sulci are globally prominent. Scattered foci of low attenuation within the white matter. Prominence of cisterna magna. Calcification left cerebral hemisphere again seen. IMPRESSION: * No acute intracranial hemorrhage. * Scattered regions of low attenuation within the white matter. Non-specific in nature but a common finding and frequently secondary to small vessel ischemic disease. Electronically signed by: Britany Guerrero MD (09/17/2021 4:05 AM) [id number] VTE Prophylaxis Ordered VTE Prophylaxis Devices: No VTE Pharmacological Prophylaxi: Yes Assessment/Plan Assessment/Plan Acute encephalopathy -likely due to acute intoxication. Metabolic Syncope -passed out due to alcohol intoxication Chest pain -likely epigastric. Smoker - counseled on cessation Alcohol use disorder - intoxicated, counseled on cutting back HTN - home meds HLD - home meds Headache -tension from hangover FEN - Cardiac diet PPX - lovenox FULL CODE Dispo - observation Justifications for Admission Other Justification RACHEL JUAN MD September 17, 2021 08:08
[2021-09-17] MEDS ORDERED: IV DEXTROSE 5% 250 ML BAG. IV PRN (08:15)
[2021-09-17] MEDS ORDERED: INSULIN LISPRO 300 UNITS/3 ML VIAL. SQ SCH (08:15)
[2021-09-17] MEDS ORDERED: DEXTROSE 50% 25 GM / 50ML DISP.SYRIN. IV PRN (08:15)
[2021-09-17] MEDS ORDERED: ACETAMINOPHEN 325 MG TABLET. PO PRN (10:15)
--- NOTE | 2021-09-17 10:38 | PDOC3 ---
Discharge Summary Visit Information Date of Admission: September 17, 2021 Date of Discharge: September 17, 2021 Admitting Diagnosis: Chest pain Final Diagnosis Problems Medical Problems: (1) Chest pain Status: Acute Brief Hospital Course Allergies Allergies Coded Allergies Type Severity Reaction Last Updated Verified No Known Drug Allergies 10/13/14 No Vital Signs Vital Signs Date Time Temp Pulse Resp B/P (MAP) Pulse Ox O2 Delivery O2 Flow Rate FiO2 09/17/21 06:15 98.4 82 20 125/66 (85) 95 Room Air 98.4 Lab Results Laboratory Tests Test 09/17/21 01:20 09/17/21 01:53 09/17/21 04:50 09/17/21 09:25 White Blood Count 17.9 x10^3/uL (4.0-11.0) Red Blood Count 4.94 x10^6/uL (4.30-5.70) Hemoglobin 14.7 g/dL (13.0-17.5) Hematocrit 43.2 % (39.0-53.0) Mean Corpuscular Volume 87 fL (79-100) Mean Corpuscular Hemoglobin 30 pg (25-35) Mean Corpuscular Hemoglobin Concent 34 g/dL (31-37) Red Cell Distribution Width 13.9 % (11.5-14.5) Platelet Count 241 x10^3/uL (140-400) Neutrophils (%) (Auto) 71 % (31-73) Lymphocytes (%) (Auto) 24 % (24-48) Monocytes (%) (Auto) 5 % (0-9) Eosinophils (%) (Auto) 1 % (0-3) Basophils (%) (Auto) 1 % (0-3) Neutrophils # (Auto) 12.6 x10^3/uL (1.8-7.7) Lymphocytes # (Auto) 4.2 x10^3/uL (1.0-4.8) Monocytes # (Auto) 0.8 x10^3/uL (0.0-1.1) Eosinophils # (Auto) 0.2 x10^3/uL (0.0-0.7) Basophils # (Auto) 0.1 x10^3/uL (0.0-0.2) Sodium Level 140 mmol/L (136-145) Potassium Level 3.7 mmol/L (3.5-5.1) Chloride Level 103 mmol/L (98-107) Carbon Dioxide Level 21 mmol/L (21-32) Anion Gap 16 (6-14) Blood Urea Nitrogen 20 mg/dL (8-26) Creatinine 1.3 mg/dL (0.7-1.3) Estimated GFR (Cockcroft-Gault) 58.4 BUN/Creatinine Ratio 15 (6-20) Glucose Level 113 mg/dL (70-99) Calcium Level 8.1 mg/dL (8.5-10.1) Magnesium Level 2.3 mg/dL (1.8-2.4) Total Bilirubin 0.2 mg/dL (0.2-1.0) Aspartate Amino Transf (AST/SGOT) 27 U/L (15-37) Alanine Aminotransferase (ALT/SGPT) 45 U/L (16-63) Alkaline Phosphatase 92 U/L (46-116) Troponin I High Sensitivity 6 ng/L (4-75) 4 ng/L (4-75) 6 ng/L (4-75) OW-Sqr-T-Type Natriuretic Peptide 10 pg/mL (0-124) Total Protein 6.9 g/dL (6.4-8.2) Albumin 3.7 g/dL (3.4-5.0) Albumin/Globulin Ratio 1.2 (1.0-1.7) Lipase 68 U/L (73-393) Ethyl Alcohol Level 222 mg/dL (0-10) Urine Collection Type Unknown Urine Color (Auto) Colorless Urine Turbidity Clear Urine pH (Auto) 5.5 (<5.0-8.0) Urine Specific [place] 1.010 (1.000-1.030) Urine Protein (Auto) Negative mg/dL (Negative) Urine Glucose (Auto)(UA) Negative mg/dL (Negative) Urine Ketones (Auto) Negative mg/dL (Negative) Urine Blood (Auto) Negative (Negative) Urine Nitrite (Auto) Negative (Negative) Urine Bilirubin (Auto) Negative (Negative) Urine Urobilinogen (Auto) Normal mg/dL (Normal) Urine Leukocyte Esterase (Auto) Negative (Negative) Urine RBC 0 /HPF (0-2) Urine WBC Occ /HPF (0-4) Urine Squamous Epithelial Cells Occ /LPF Urine Bacteria 0 /HPF (0-FEW) Urine Opiates Screen Neg (NEG) Urine Methadone Screen Neg (NEG) Urine Barbiturates Neg (NEG) Urine Phencyclidine Screen Neg (NEG) Urine Amphetamine/Methamphetamine Neg (NEG) Urine Benzodiazepines Screen Neg (NEG) Urine Cocaine Screen Neg (NEG) Urine Cannabinoids Screen Neg (NEG) Urine Ethyl Alcohol Pos (NEG) Laboratory Tests Test 09/17/21 01:20 09/17/21 01:53 09/17/21 04:50 09/17/21 09:25 White Blood Count 17.9 x10^3/uL (4.0-11.0) Red Blood Count 4.94 x10^6/uL (4.30-5.70) Hemoglobin 14.7 g/dL (13.0-17.5) Hematocrit 43.2 % (39.0-53.0) Mean Corpuscular Volume 87 fL (79-100) Mean Corpuscular Hemoglobin 30 pg (25-35) Mean Corpuscular Hemoglobin Concent 34 g/dL (31-37) Red Cell Distribution Width 13.9 % (11.5-14.5) Platelet Count 241 x10^3/uL (140-400) Neutrophils (%) (Auto) 71 % (31-73) Lymphocytes (%) (Auto) 24 % (24-48) Monocytes (%) (Auto) 5 % (0-9) Eosinophils (%) (Auto) 1 % (0-3) Basophils (%) (Auto) 1 % (0-3) Neutrophils # (Auto) 12.6 x10^3/uL (1.8-7.7) Lymphocytes # (Auto) 4.2 x10^3/uL (1.0-4.8) Monocytes # (Auto) 0.8 x10^3/uL (0.0-1.1) Eosinophils # (Auto) 0.2 x10^3/uL (0.0-0.7) Basophils # (Auto) 0.1 x10^3/uL (0.0-0.2) Sodium Level 140 mmol/L (136-145) Potassium Level 3.7 mmol/L (3.5-5.1) Chloride Level 103 mmol/L (98-107) Carbon Dioxide Level 21 mmol/L (21-32) Anion Gap 16 (6-14) Blood Urea Nitrogen 20 mg/dL (8-26) Creatinine 1.3 mg/dL (0.7-1.3) Estimated GFR (Cockcroft-Gault) 58.4 BUN/Creatinine Ratio 15 (6-20) Glucose Level 113 mg/dL (70-99) Calcium Level 8.1 mg/dL (8.5-10.1) Magnesium Level 2.3 mg/dL (1.8-2.4) Total Bilirubin 0.2 mg/dL (0.2-1.0) Aspartate Amino Transf (AST/SGOT) 27 U/L (15-37) Alanine Aminotransferase (ALT/SGPT) 45 U/L (16-63) Alkaline Phosphatase 92 U/L (46-116) Troponin I High Sensitivity 6 ng/L (4-75) 4 ng/L (4-75) 6 ng/L (4-75) NZ-Uxs-U-Type Natriuretic Peptide 10 pg/mL (0-124) Total Protein 6.9 g/dL (6.4-8.2) Albumin 3.7 g/dL (3.4-5.0) Albumin/Globulin Ratio 1.2 (1.0-1.7) Lipase 68 U/L (73-393) Ethyl Alcohol Level 222 mg/dL (0-10) Urine Collection Type Unknown Urine Color (Auto) Colorless Urine Turbidity Clear Urine pH (Auto) 5.5 (<5.0-8.0) Urine Specific [place] 1.010 (1.000-1.030) Urine Protein (Auto) Negative mg/dL (Negative) Urine Glucose (Auto)(UA) Negative mg/dL (Negative) Urine Ketones (Auto) Negative mg/dL (Negative) Urine Blood (Auto) Negative (Negative) Urine Nitrite (Auto) Negative (Negative) Urine Bilirubin (Auto) Negative (Negative) Urine Urobilinogen (Auto) Normal mg/dL (Normal) Urine Leukocyte Esterase (Auto) Negative (Negative) Urine RBC 0 /HPF (0-2) Urine WBC Occ /HPF (0-4) Urine Squamous Epithelial Cells Occ /LPF Urine Bacteria 0 /HPF (0-FEW) Urine Opiates Screen Neg (NEG) Urine Methadone Screen Neg (NEG) Urine Barbiturates Neg (NEG) Urine Phencyclidine Screen Neg (NEG) Urine Amphetamine/Methamphetamine Neg (NEG) Urine Benzodiazepines Screen Neg (NEG) Urine Cocaine Screen Neg (NEG) Urine Cannabinoids Screen Neg (NEG) Urine Ethyl Alcohol Pos (NEG) Brief Hospital Course Mr Newman is a 50 year old divehi speaking only male who was brought here by EMS from home due to chest pain. Family said they went out to a bar, had a alliance party today, patient drank heavy amount of alcohol. On the way home patient started having chest pain, when they pulled into the his driveway patient passed out for a few minutes. Patient was acting confused. EMS were called, they gave him 1 dose of Narcan but did not produce any effect. His family stated that patient is a heavy smoker, heavy drinker, denies any history of diabetic. He has no history of high blood pressure but he does have a history of high cholesterol. Patient is not on any medication. Patient denies any history of coronary artery disease. No cough or fever, no abdominal pain. Through his daughter, patient said he is having left side chest pain that radiating to left shoulder and arm. Labs with WBC 17.9, Hb 14.7, platelets 241, NA 140, K3.7, BUN 20, CR 1.3, glucose 113, calcium 8.1, magnesium 2.3 bilirubin 0.2, AST 27, ALT 45, alkaline phosphatase 92, albumin 3.7, lipase 68, NT proBNP 10, high-sensitivity troponin 6 repeat is 4, urine drug screen positive for ethanol and ethanol level at 0120 on 09/17/21 was 222 mg/dL, urinalysis bland CT chest abdomen pelvis with large glass opacities liver abnormalities no pulmonary infarcts distended bladder. EKG was done at 202, heart rate of 77 bpm, sinus rhythm, no ST segment elevation. Apparatus of observation patient was sober Complaint of chest pain likely epigastric had a mild headache likely due to hangover. No telemetry events final troponin negative. Counseled on need for outpatient follow-up for cardiac stress testing he actually has previously done this several years ago that was negative in 2016. Acute encephalopathy -likely due to acute intoxication. Metabolic. Resolved Syncope -passed out due to alcohol intoxication Chest pain -likely epigastric. Smoker - counseled on cessation Alcohol use disorder - intoxicated, counseled on cutting back HTN - home meds HLD - home meds Headache -tension from hangover Greater than 135 minutes spent on same day admit discharge Discharge Information Condition at Discharge: Improved Follow Up: Weeks (1) Disposition/Orders: D/C to Home Scheduled Fenofibrate,Micronized (Lofibra) 134 Mg Capsule, 134 MG PO DAILY, #30 Prescribed by: JANETH VARGAS on 10/14/14 144 [place]-3 Fatty Acids/Fish Oil (Fish Oil 1,000 Mg Capsule) 1,000 Mg Capsule, 2,000 MG PO BID, #60 Prescribed by: JANETH VARGAS on 10/14/14 144 [Aspirin] 81 MG TABLET.DR, 81 MG PO DAILYWBKFT, #30 Prescribed by: JANETH VARGAS on 10/14/14 144 Scheduled PRN [Guaifenesin/Dextromethorphan] 10 ML SYRUP, 10 ML PO PRN Q6HRS PRN for COUGH, #30 Prescribed by: JANETH VARGAS on 10/14/14 144 Discontinued Medications Cephalexin (Keflex) 500 Mg Capsule, 1 CAP PO TID, #30 Prescribed by: LEIDY PATEL D.O. on 10/25/171918 Cyclobenzaprine Hcl (Cyclobenzaprine Hcl) 10 Mg Tablet, 1 TAB PO QHS, #20 Prescribed by: SASKIA DRISCOLL D.O. on 02/11/21 0016 Hydrocodone/Apap 5-325 (Lostant 5-325 Tablet) 1 Each Tablet, 1 TAB PO PRN Q6HRS PRN for PAIN, #10 Ref 0 Prescribed by: LEIDY PATEL D.O. on 10/25/171918 Justicifation of Admission Dx: Justifications for Admission: Justification of Admission Dx: RACHEL Flaherty MD September 17, 2021 10:38
[2021-09-17 11:00] VITALS: BP 106/64
--- NOTE | 2021-09-18 06:00 | EKG ---
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
--- NOTE | 2021-09-18 06:00 | EKG ---
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
== END 2021-09-17 11:00 | disposition home or self-care (01) ==
LOC: ER 01:03 → 1 WEST ICU 05:33
PROVIDERS: ADMIT Internal Medicine; ATTEND Internal Medicine
DX: G93.40 Encephalopathy, unspecified (principal); R55 Syncope and collapse; R07.89 Other chest pain; I10 Essential (primary) hypertension; F10.129 Alcohol abuse with intoxication, unspecified; E78.00 Pure hypercholesterolemia, unspecified; E78.5 Hyperlipidemia, unspecified; F17.200 Nicotine dependence, unspecified, uncomplicated; G44.209 Tension-type headache, unspecified, not intractable; M19.90 Unspecified osteoarthritis, unspecified site; Z90.49 Acquired absence of other specified parts of digestive tract; Z79.899 Other long term (current) drug therapy; Z98.890 Other specified postprocedural states
CPT/HCPCS: 36415; 70450; 71045; 71275; 74174; 80053; 80307; 81001; 83690; 83735; 83880; 84484; 85025; 93005; 96360; 96361; 99285; G0378; G0480; J7030; G0379; J1815